=== PATIENT | male | born 1985 | race Caucasian/White ===

== ENCOUNTER 2018-07-19 00:15 | Emergency (ER) | payer OTHER ==
[~2018-07-19] VITALS: Ht 167.6 cm; Wt 93.9 kg
[2018-07-19 00:23] VITALS: Ht 167.6 cm; Wt 93.9 kg
[2018-07-19 02:41] LABS: microscopic required? NO
[2018-07-19 02:52] LABS: urine erythrocyte NEGATIVE (NEGATIVE)
[2018-07-19 02:57] LABS: CALCIUM 8.9 mg/dL (8.5-10.1); CARBON DIOXIDE 23.9 mmol/L (21-32); CHLORIDE SERUM 105 mmol/L (98-107); GFR1 > 60 mL/min; GLUCOSE SERUM 104 mg/dL (74-106); POTASSIUM SERUM 3.2 mmol/L (3.5-5.1); SODIUM SERUM 140 mmol/L (136-145)
[2018-07-19 03:10] LABS: ALBUMIN 4.1 g/dL (3.4-5.0); ALKALINE PHOSPHATASE 73 U/L (46-116); ALT/SGPT 49 U/L (16-63); AST/SGOT 30 U/L (15-37); BILIRUBIN TOTAL 0.51 mg/dL (0.20-1.00); FREE T4 0.85 ng/dL (0.76-1.46); TOTAL PROTEIN, SERUM 7.4 g/dL (6.4-8.2)
[2018-07-19 03:12] LABS: AMPHETAMINE QUAL UR NONE DETECTED (See below)
[2018-07-19 03:14] LABS: MAGNESIUM 2.2 mg/dL (1.8-2.4)
[2018-07-19 04:05] VITALS: BP 127/56
[2018-07-19 04:51] LABS: PLATELET COUNT 230 x10^3mcL (130-400); RED CELL DISTRIBUTION WIDTH 13.5 % (11.5-14.5)
== END 2018-07-19 04:05 | disposition home or self-care (01) ==
LOC: ED 00:15
PROVIDERS: Emergency Medicine
DX: R42 Dizziness and giddiness (principal); R20.2 Paresthesia of skin; E87.6 Hypokalemia; R47.81 Slurred speech; M54.2 Cervicalgia
CPT/HCPCS: 36415; 84439